=== PATIENT | male | born 1960 | race American Indian/Alaskan Native ===

== ENCOUNTER 2017-04-25 22:52 | Emergency (ER) | payer OTHER ==
[2017-04-25] MEDS ORDERED: NORCO 5/325 PO ONE (23:36)
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
[2017-04-26 00:54] VITALS: BP 168/103
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
== END 2017-04-26 01:05 | disposition home or self-care (01) ==
LOC: ED 22:52
DX: M25.552 Pain in left hip (principal); M54.2 Cervicalgia; I10 Essential (primary) hypertension; E11.9 Type 2 diabetes mellitus without complications; V49.49XA Driver injured in collision with other motor vehicles in traffic accident, initial encounter; Y93.89 Activity, other specified; Y92.89 Other specified places as the place of occurrence of the external cause; Y99.8 Other external cause status
CPT/HCPCS: 70450; 72125